=== PATIENT | female | born 1935 | race Caucasian/White ===

== ENCOUNTER 2016-05-11 20:13 | Inpatient (IN) | payer MEDICARE, BC ==
[2016-05-11] MEDS ORDERED: ONDANSETRON HCL INJ/PF 4 MG/2 ML SDV IV ONE (21:00)
[2016-05-11] MEDS ORDERED: NORMAL SALINE 1000 ML 1,000 ML IV ONE ×3 (21:00→23:53)
--- NOTE | 2016-05-11 21:01 | ER Document Report ---
ED General - General Chief Complaint: Abdominal Pain Stated Complaint: ALTERED MENTAL STATUS Notes: Patient is an 81-year-old female with past medical history of hypertension, hyperlipidemia, obesity, dementia, peripheral neuropathy, who presents by EMS with altered mental status and vomiting. History is limited as patient is disoriented, moaning and appears to be in pain. She is not able to provide meaningful history. Her grandson who lives with her is at the bedside and states that normally patient is alert and oriented, able to converse without difficulty, and complete most activities of daily living. He states for the last week patient has become progressively less functional, spending most of her day in bed. He notes that in the last 2 days become much more confused than normal. She began having vomiting today and it was noted to be bilious. No history of similar symptoms in the past. Nothing is noted to improve or worsen the patient's symptoms. She has not seen her primary care doctor since becoming ill. - Related Data Allergies/Adverse Reactions: No Known Allergies Allergy (Unverified 05/11/16 22:37) Home Medications: Current Home Medications Allopurinol [Allopurinol] 1 tab PO DAILY 05/12/16 [History] Donepezil HCl [Aricept 5 mg Tablet] 5 mg PO DAILY 05/12/16 [History] Furosemide [Furosemide] 1 tab PO QID 05/12/16 [History] Gabapentin [Gabapentin] 1 cap PO TID 05/12/16 [History] Levothyroxine Sodium [Levothyroxine Sodium] 1 tab PO QAM 05/12/16 [History] Lisinopril [Lisinopril] 1 tab PO DAILY 05/12/16 [History] Metolazone [Metolazone] 1 tab PO QAM 05/12/16 [History] Oxycodone HCl/Acetaminophen [Oxycodone-Acetaminophen 10-325] 1 each PO QID 05/12 [History] Potassium Chloride [Klor-Con M10] 2 tab PO BIDP PRN 05/12/16 [History] Trazodone HCl [Trazodone HCl] 1 tab PO QHS 05/12/16 [History] Warfarin Sodium [Jantoven] 1 tab PO DAILY 05/12/16 [History] Past Medical History - General Information source: Patient, Relative - Social History Smoking Status: Never Smoker Chew tobacco use (# tins/day): Yes Frequency of alcohol use: None Drug Abuse: None Lives with: Family Family History: Reviewed & Not Pertinent Review of Systems - Review of Systems Notes: Constitutional: Negative for fever. HENT: Negative for sore throat. Eyes: Negative for visual changes. Cardiovascular: Negative for chest pain. Respiratory: Negative for shortness of breath. Gastrointestinal: Positive for abdominal pain and vomiting Genitourinary: Negative for dysuria. Musculoskeletal: Negative for back pain. Skin: Negative for rash. Neurological: Negative for headaches, weakness or numbness. 10 point ROS negative except as marked above and in HPI. Physical Exam - Vital signs Vitals: Temp Pulse Resp BP Pulse Ox 98.0 F 67 22 H 106/94 H 98 05/11/16 20:18 05/11/16 20:18 05/11/16 20:18 05/11/16 20:18 05/11/16 20:18 Interpretation: Hypotensive, Tachycardic Notes: PHYSICAL EXAMINATION: GENERAL: Elderly, ill in appearance. Moaning and appears to be in pain. HEAD: Atraumatic, normocephalic. EYES: Pupils equal round and reactive to light, extraocular movements intact, sclera anicteric, conjunctiva are normal. ENT: nares patent, oropharynx clear without exudates. Dry mucous membranes. NECK: Normal range of motion, supple without lymphadenopathy LUNGS: Breath sounds clear to auscultation bilaterally and equal. No wheezes rales or rhonchi. HEART: Regular tachycardia without murmurs ABDOMEN: Soft, Diffuse tenderness, bowel sounds present. No rebound or guarding. , EXTREMITIES: Normal range of motion, no pitting or edema. No cyanosis. NEUROLOGICAL: No focal neurological deficits. Moves all extremities spontaneously and on command. PSYCH: Oriented to person, president but does not know year or month. SKIN: Warm, Dry, normal turgor, no rashes or lesions noted. Course - Re-evaluation Re-evalutation: 05/11/16 21:03 Patient presents altered, hypotensive, with bilious vomiting. Presentation is concerned for possible bowel obstruction given bilious vomiting and generalized abdominal pain. This would also send patient's hypotension. Will obtain broad laboratories, CT abdomen and pelvis, begin IV fluids, and reassess frequently as patient is critically ill, altered and unstable time. 05/11/16 22:01 Patient's laboratories demonstrate severe dehydration with near complete kidney failure at this time with a GFR of only 7. Suspect a component of underlying CKD but I have no old for comparison.Her BUN/creatinine ratio is greater than 20 and consistent with a likely prerenal in origin. IV fluids are being administered. The CT scan will be noncontrasted. 05/12/16 2330 I have reviewed the reports from CT and chest x-rays demonstrate a pericardial effusion but no other acute pathology. Once the bedside and performed a bedside echocardiogram. A pericardial effusion is apparent but there is no RV collapse and no evidence of tamponade. However, patient's mentation is now worsening and her blood pressures are dropping into the low 70s upper 60s. She continues protect her airway, awakens to loud voice. I initiated a transfer request to [facility] and at the same time was attempting to get hold of family who had left as they left prior to my ability to discuss the case with them. I got ahold of the patient's son Ruiz Hollis who is listed as the primary contact for this patient. We reviewed the patient's critical condition, her current diagnoses, and prognosis particularly given her age. I offered a transfer to [place], starting a central line, intubating the patient, initiating central vasopressors, and transferring with the intent of a therapeutic pericardiocentesis and possible pericardial window should her hypotension persist or she begins to develop tamponade pathology on ultrasound. I also alternatively offered care with comfort measures specifically avoiding transfer to another facility, a central line, intubation, chest compressions, initiation of dialysis, instead focusing on comfort measures and allowing for IV fluids, IV vasopressors, and IV antibiotics. After a long conversation, Ruiz elected for avoiding transfer with aggressive treatment options instead electing for comfort measures with reasonable resuscitation efforts. The patient is a DNR/DNI at this time. She will be started on peripheral IV norepinephrine, antibiotics, and additional fluids will be started. I will also monitor closely for signs of discomfort or air hunger and provide analgesia and anxiolysis as needed. 0403- patient has remained somnolent but does awaken to loud voice. On epinephrine her blood pressure has normalized. She continues to the paced rhythm. Maintaining sats in the mid 90s on 2 L by nasal cannula. I have discussed this case with Dr. Henning the hospitalist who has asked that I signed this patient out to my colleague Dr. Gonzalez as he is not in a place to accept this patient at this time. The details have been reviewed with Dr. Gonzalez who monitor the patient until the hospitalist service can accept. - Vital Signs Vital signs: Temp Pulse Resp BP Pulse Ox 98.0 F 67 23 H 85/48 L 100 05/11/16 20:18 05/11/16 20:18 05/12/16 03:11 05/12/16 03:11 05/12/16 03:11 - Laboratory Result Diagrams: 05/11/16 21:00 05/11/16 21:00 Laboratory results interpreted by me: 05/11/16 05/11/16 05/11/16 21:00 21:00 21:00 WBC 15.6 H Hgb 11.0 L Hct 33.3 L RDW 17.4 H Seg Neuts % (Manual) 79 H Band Neutrophils % 1 L Lymphocytes % (Manual) 11 L Abs Neuts (Manual) 12.5 H Sodium 122.2 L Potassium 5.6 H Chloride 76 L Carbon Dioxide 18 L Anion Gap 28 H BUN 196 H Creatinine 7.14 H Est GFR ( Amer) 7 L Est GFR (Non-Af Amer) 5 L Total Bilirubin 1.5 H AST 88 H Creatine Kinase 1062 H CK-MB (CK-2) 16.40 H Urine Protein Urine Ketones Urine Blood Ur Leukocyte Esterase 05/11/16 21:38 WBC Hgb Hct RDW Seg Neuts % (Manual) Band Neutrophils % Lymphocytes % (Manual) Abs Neuts (Manual) Sodium Potassium Chloride Carbon Dioxide Anion Gap BUN Creatinine Est GFR ( Amer) Est GFR (Non-Af Amer) Total Bilirubin AST Creatine Kinase CK-MB (CK-2) Urine Protein 100 H Urine Ketones TRACE H Urine Blood MODERATE H Ur Leukocyte Esterase MODERATE H - Diagnostic Test Radiology reviewed: Image reviewed, Reports reviewed Radiology results interpreted by me: 05/12/16 00:16 Chest x-ray: Cardiomegaly - EKG Interpretation by Me Additional EKG results interpreted by me: 05/12/16 00:22 Ventricular paced rhythm Critical Care Note - Critical Care Note Total time excluding time spent on procedures (mins): 80 Comments: Critical care time spent obtaining history from patient or surrogate, discussions with consultants, development of treatment plan with patient or surrogate, evaluation of patient's response to treatment, examination of patient , ordering and performing treatments and interventions, ordering and review of laboratory studies, re-evaluation of patient's condition, ordering and review of radiographic studies and review of old charts Discharge - Discharge Clinical Impression: Pericardial effusion, [id number] kidney injury, Hyponatremia, Elevated troponin I level Condition: Critical Disposition: ADMITTED INPATIENT Admitting Provider: Hospitalist
[2016-05-11 21:22] LABS: HEMATOCRIT 33.3 % (36.0-47.0); HGB HCT DIFFERENCE -0.3; MEAN CORPUSCULAR HEMOGLOBIN 28.5 pg (27.0-33.4); MEAN CORPUSCULAR VOLUME 87 fl (80-97); RED BLOOD COUNT 3.85 10^6/uL (3.72-5.28); RED CELL DISTRIBUTION WIDTH 17.4 % (11.5-14.0); WHITE BLOOD COUNT 15.6 10^3/uL (4.0-10.5)
[2016-05-11 21:28] LABS: ALANINE AMINOTRANSFERASE 46 U/L (9-52); ALBUMIN 3.9 g/dL (3.5-5.0); ALKALINE PHOSPHATASE 86 U/L (38-126); ASPARTATE AMINO TRANSFERASE 88 U/L (14-36); BILIRUBIN,TOTAL 1.5 mg/dL (0.2-1.3); CALCIUM 8.6 mg/dL (8.4-10.2); CREATINE KINASE 1062 U/L (30-135); GLUCOSE 92 mg/dL (75-110); TOTAL PROTEIN 7.5 g/dL (6.3-8.2)
[2016-05-11 21:34] LABS: CREATININE RESULT 7.14 mg/dL (0.52-1.25)
[2016-05-11 21:35] LABS: BLOOD UREA NITROGEN 196 mg/dL (7-20)
[2016-05-11 21:39] LABS: BAND NEUTROPHILS % (MANUAL) 1 % (3-5); BASOPHILS % (MANUAL) 0 % (0-2); EOSINOPHILS % (MANUAL) 1 % (0-6); LYMPHOCYTES % (MANUAL) 11 % (13-45); TOTAL CELLS COUNTED 100
[2016-05-11 21:40] LABS: CREATINE KINASE MB 16.4 ng/mL (<4.55)
[2016-05-11 21:41] LABS: ANISOCYTOSIS 1+; POIKILOCYTOSIS SLIGHT
[2016-05-11 21:42] LABS: OVALOCYTES SLIGHT
[2016-05-11 21:48] LABS: TROPONIN I 0.074 ng/mL
[2016-05-11 21:51] LABS: CARBON DIOXIDE 18 mmol/L (22-30); CHLORIDE 76 mmol/L (98-107); POTASSIUM 5.6 mmol/L (3.6-5.0); SODIUM 122.2 mmol/L (137-145)
[2016-05-11 21:52] LABS: ANION GAP 28 (5-19)
[2016-05-11 22:59] LABS: APPEARANCE,URINE TURBID; BILIRUBIN,URINE NEGATIVE (NEGATIVE); GLUCOSE, URINE NEGATIVE (NEGATIVE); KETONES,URINE TRACE mg/dL (NEGATIVE); LEUKOCYTE ESTERASE,URINE MODERATE (NEGATIVE); NITRITE,URINE NEGATIVE (NEGATIVE); PROTEIN,URINE 100 mg/dL (NEGATIVE); URINE SPECIFIC GRAVITY 1.011; UROBILINOGEN,URINE NEGATIVE mg/dL (<2.0)
--- NOTE | 2016-05-11 23:36 | EKG REPORT ---
SEVERITY:- ABNORMAL ECG - VENTRICULAR-PACED COMPLEXES NONSPECIFIC INTRAVENTRICULAR CONDUCTION DELAY : Confirmed by: Dina Alegre MD 11-May-2016 23:35:53
[2016-05-11] MEDS ORDERED: CEFTRIAXONE 1 GM/D5W RTU 50 ML IV ONE (23:43)
[2016-05-12] MEDS ORDERED: NOREPINEPHRINE BITARTRATE INJ/PF 4 MG/4 ML SDV IV ONE (00:25)
[2016-05-12] MEDS: DEXTROSE 5%-WATER 250 ML with NOREPINEPHRINE BITARTRATE 4 MG IV PRN ×6 (02:10→08:22)
[2016-05-12] MEDS ORDERED: NORMAL SALINE 1000 ML 1,000 ML IV ONE (03:13)
[2016-05-12] MEDS: FENTANYL CITRATE INJ/PF 100 MCG/2 ML AMPUL IV PRN ×2 (03:30→04:26)
[2016-05-12 04:37] LABS: CALCIUM 7.4 mg/dL (8.4-10.2); CARBON DIOXIDE 19 mmol/L (22-30); CHLORIDE 77 mmol/L (98-107); CREATININE RESULT 6.56 mg/dL (0.52-1.25); GLUCOSE 374 mg/dL (75-110); POTASSIUM 5.1 mmol/L (3.6-5.0)
[2016-05-12 05:01] LABS: ANION GAP 23 (5-19); BLOOD UREA NITROGEN 170 mg/dL (7-20)
[2016-05-12 05:03] LABS: SODIUM 118.6 mmol/L (137-145)
[2016-05-12] MEDS ORDERED: LORAZEPAM INJ 2 MG/1 ML VIAL IV ONE (05:30)
[2016-05-12] MEDS ORDERED: DEXTROSE 50%-WATER 25 GM/50 ML DISP.SYRIN IV PRN ×2 (08:58)
[2016-05-12] MEDS ORDERED: GLUCAGON,HUMAN RECOMB 1 MG INJ IM PRN (08:58)
[2016-05-12] MEDS ORDERED: DEXTROSE 40% GEL 15 GM TUBE PO PRN ×2 (08:58)
[2016-05-12] MEDS ORDERED: INSULIN LISPRO 100 UNIT/ML 3 ML VIAL SUBCUT PRN (08:58)
[2016-05-12] MEDS ORDERED: NORMAL SALINE 1000 ML 1,000 ML IV PRN ×3 (09:29→18:32)
[2016-05-12] MEDS ORDERED: DEXTROSE 5%-WATER 250 ML with NOREPINEPHRINE BITARTRATE 4 MG IV PRN ×2 (09:36)
[2016-05-12 09:47] LABS: CALCIUM 7.8 mg/dL (8.4-10.2); CARBON DIOXIDE 20 mmol/L (22-30); CHLORIDE 82 mmol/L (98-107); CREATININE RESULT 6.85 mg/dL (0.52-1.25); GLUCOSE 121 mg/dL (75-110); POTASSIUM 5.1 mmol/L (3.6-5.0)
[2016-05-12 09:55] LABS: BLOOD UREA NITROGEN 178 mg/dL (7-20)
[2016-05-12] MEDS ORDERED: HEPARIN SOD (PORCINE) 5,000 UNIT/ML 1 ML SYRINGE SUBCUT SCH (10:00)
[2016-05-12 10:02] LABS: SODIUM 126.6 mmol/L (137-145)
[2016-05-12 10:04] LABS: ANION GAP 25 (5-19)
[2016-05-12] MEDS ORDERED: HYDROMORPHONE HCL INJ/PF 2 MG/ML AMPULE IV PRN ×2 (10:07→18:32)
--- NOTE | 2016-05-12 10:33 | PDOC H&P ---
History of Present Illness Admission Date/PCP: 05/12/16 07:46 Patient complains of: Altered mental status History of Present Illness: KEVIN NIELSEN is a 81 year old female brought to the emergency room for evaluation of above complaint. Patient has been discussed with emergency room physician who evaluated the patient. Patient is quite ill, completely nonverbal, and although maintaining her airway well, responds only with a slight grimace to trapezius pinch. Otherwise, does not respond to name. She is thus able to provide no history whatsoever in terms of acute or chronic events, review of systems, personal habits, family history, etc. No friends or family are present. No old inpatient records available for review.. Please refer to documentation by ER re:her history and present illness, which has been reviewed. No further information available at this point in time. Levophed drip has been started by emergency room physician. . Laboratory results are listed in [facility] and are reviewed. X-ray summary results are listed below, with full report(s) reviewed. . EKG reviewed. No old EKG available for review. Social history/personal habits: Grandson lives with her. Retired. No use of alcohol tobacco or illicit drugs. No further information available this point in time. Allergies/adverse reactions NKDA. Home medications have been reconciled by nursing staff in [facility]. Home medications initially autopopulated into [facility] may not accurately reflect patient's true medications, dosages, and/or frequencies. Unfortunately, patient unable to confirm medications/dosages/frequencies. No medication bottles or lists available for review. REVIEW OF SYSTEMS: See history and present illness.No further information available this point in time. PHYSICAL EXAMINATION: 113.4 kg. Height is not recorded on the chart. Temperature 98.0. Blood pressure 87/56. Pulse 60 and regular. 98% saturation on 3 L oxygen per nasal cannula. Respirations are 24 and unlabored. Obese chronically ill-appearing elderly female, appearing approximately her stated age. Occasional slight moan. Does not respond to name or other conversation. Slight grimace to trapezius pinch. Maintaining her airway well. Skin is warm and dry. No grossly obvious evidence of rash in areas of skin examined. No subcutaneous nodules palpated. ENT: Hearing can't be adequately evaluated due to her current status. Eyes: No scleral icterus. Pupils pinpoint. [place] conjunctivae. Neck is nontender to gentle palpation. Midline trachea. No palpable thyroid nodule mass enlargement or tenderness. Lymphatic: No palpable cervical or clavicular nodes. Neck and lymphatic exams limited by patient body habitus. Psychiatric: Can't be adequately evaluated due to her current status. Lungs: Auscultation reveals clear and equal breath sounds bilaterally. No use of accessory respiratory muscles. Cardiovascular: Heart regular rate and rhythm, without gallop murmur or rub. No carotid or abdominal aortic bruits. Mild bilateral symmetric slightly pitting ankle and pedal edema Faintly palpable dorsalis pedis pulses. Abdomen: soft, somewhat obese, somewhat distended nontender with positive bowel sounds. Unable to adequately evaluate abdomen for masses or organomegaly due to distention and body habitus. Extremities: Hands and Feet are warm and dry. No calf tenderness to compression. No grossly obvious visual evidence of calf swelling. Gentle manipulation of lower extremities fails to reveal any obvious evidence of injury or instability to knees hips or ankles. Neurologic: [Patellar reflexes absent. Absent Babinski. Light touch can't be determined due to her current status. Does not follow requests for handgrip or movement of her toes or feet. Past Medical History Cardiac Medical History: Reports: Hypertension Endocrine Medical History: Reports: Diabetes Mellitus Type 2 - previous dx Social History Information Source: Emergency Med Personnel, [facility] Records Lives with: Family Smoking Status: Never Smoker - Advance Directive Resuscitation Status: Do Not Resuscitate Surrogate healthcare decision maker:: reportedly son Family History Family History: Reviewed & Not Pertinent Parental Family History Reviewed: No - No further information available except as noted above Children Family History Reviewed: No Sibling(s) Family History Reviewed.: No Medication/Allergy Home Medications: Allopurinol [Allopurinol] 1 tab PO DAILY 05/12/16 Donepezil HCl [Aricept 5 mg Tablet] 5 mg PO DAILY 05/12/16 Furosemide [Furosemide] 1 tab PO QID 05/12/16 Gabapentin [Gabapentin] 1 cap PO TID 05/12/16 Levothyroxine Sodium [Levothyroxine Sodium] 1 tab PO QAM 05/12/16 Lisinopril [Lisinopril] 1 tab PO DAILY 05/12/16 Metolazone [Metolazone] 1 tab PO QAM 05/12/16 Oxycodone HCl/Acetaminophen [Oxycodone-Acetaminophen 10-325] 1 each PO QID 05/12 Potassium Chloride [Klor-Con M10] 2 tab PO BIDP PRN 05/12/16 Trazodone HCl [Trazodone HCl] 1 tab PO QHS 05/12/16 Warfarin Sodium [Jantoven] 1 tab PO DAILY 05/12/16 Allergies/Adverse Reactions: No Known Allergies Allergy (Unverified 05/11/16 22:37) Physical Exam Vital Signs: Temp Pulse Resp BP Pulse Ox 97.4 F 67 18 111/91 H 97 05/12/16 07:43 05/11/16 20:18 05/12/16 08:41 05/12/16 08:41 05/12/16 08:41 Results Impressions: Abdomen/Pelvis CT 05/11/16 20:58 IMPRESSION: NO ACUTE INFLAMMATORY CHANGES SEEN WITHIN THE ABDOMEN PELVIS ON THIS NONCONTRAST CT. DIVERTICULOSIS WITHOUT DIVERTICULITIS. CHOLELITHIASIS WITHOUT CHOLECYSTITIS. INCIDENTAL NOTE MADE OF PERICARDIAL EFFUSION. CONSIDER CORRELATION WITH ECHOCARDIOGRAM. Chest X-Ray 05/11/16 20:58 IMPRESSION: ENLARGED CARDIAC S[place]ETTE COMPATIBLE WITH CARDIOMEGALY AND PERICARDIAL EFFUSION SEEN ON PRIOR CT ABDOMEN. CONSIDER CARDIOLOGY CONSULTATION AND CORRELATION WITH ECHOCARDIOGRAM. Assessment & Plan - Diagnosis (1) Acidosis Is this a current diagnosis for this admission?: Yes (2) Acute encephalopathy Is this a current diagnosis for this admission?: Yes (3) Anemia Qualifiers: Anemia type: unspecified type Qualified Code(s): D64.9 - Anemia, unspecified Is this a current diagnosis for this admission?: YesPlan: No old labs available for comparison.No need for transfusion at present time. (4) DNR (do not resuscitate) Is this a current diagnosis for this admission?: Yes (5) Hyperkalemia Is this a current diagnosis for this admission?: YesPlan: Improving with fluids so far. Follow-up chemistry. (6) Hyponatremia Is this a current diagnosis for this admission?: YesPlan: Follow-up chemistry. (7) Pericardial effusion Is this a current diagnosis for this admission?: YesPlan: Healthcare power of collections attorney does not desire any further treatment of same. (8) Renal failure Is this a current diagnosis for this admission?: YesPlan: Healthcare power of collections attorney does not desire any further treatment of same other than IV fluids. Follow-up chemistry. (9) Dementia Qualifiers: Dementia type: vascular dementia Dementia behavioral disturbance: without behavioral disturbance Qualified Code(s): F01.50 - Vascular dementia without behavioral disturbance Is this a current diagnosis for this admission?: Yes (10) HTN (hypertension) Qualifiers: Hypertension type: essential hypertension Qualified Code(s): I10 - Essential (primary) hypertension Is this a current diagnosis for this admission?: YesPlan: With patient hypotensive, on Levophed drip, we will obviously hold home medications. (11) Hypothyroid Qualifiers: Hypothyroidism type: unspecified Qualified Code(s): E03.9 - Hypothyroidism, unspecified Is this a current diagnosis for this admission?: Yes (12) UTI (urinary tract infection) Qualifiers: Urinary tract infection type: acute cystitis Hematuria presence: with hematuria Qualified Code(s): N30.01 - Acute cystitis with hematuria Is this a current diagnosis for this admission?: YesPlan: Rocephin. Knee high SCDs for DVT prophylaxis, along with subcutaneous heparin. Time spent in evaluation and management of patient: 48 minutes. - Inpatient Certification Based on my medical assessment, after consideration of the patient's comorbidities, presenting symptoms, or acuity I expect that the services needed warrant INPATIENT care.: Yes I certify that my determination is in accordance with my understanding of Medicare's requirements for reasonable and necessary INPATIENT services [42 CFR 412.3e].: Yes Medical Necessity: Need For IV Fluids, Need For Continuous Telemetry Monitoring , Need for IV Antibiotics, Risk of Complication if Not Cared For in Hospital Post Hospital Care: D/C or Transfer Summary
[2016-05-12] MEDS ORDERED: PHARMACY COMMUNICATION ORDER MC NR (10:45)
--- NOTE | 2016-05-12 15:45 | PDOC PROGRESS REPORT ---
Subjective Progress Note for:: 05/12/16 Subjective:: The patient was seen on rounds. The patient is completely unresponsive. She is extremities are cool. Patient does feel a cold and wet profile. The patient has evidence of cardiogenic versus septic shock. Urine output is minimal. The patient is maximized on norepinephrine at this time. I discussed the case with the patient's son who is also her surrogate decision maker. The son stated that he would like his mother to be Comfortable but does not wish for pressors to stop at this time until he discusses with other family and other family have opportunity to come to the hospital. The son adamantly refuses any heroic measures stating that the patient has had kidney and heart problems for a long time. The patient remains hypotensive, hyponatremic, and unresponsive. Physical Exam Vital Signs: Temp Pulse Resp BP Pulse Ox 97.4 F 67 14 78/50 L 96 05/12/16 07:43 05/11/16 20:18 05/12/16 15:11 05/12/16 15:11 05/12/16 15:11 Intake & Output 05/10/16 05/11/16 05/12/16 23:59 23:59 23:59 Output Total 1175 Balance -1175 General appearance: PRESENT: disheveled Exam: Frail, chronically ill-appearing Head exam: PRESENT: atraumatic, normocephalic Eye exam: PRESENT: conjunctiva pink, EOMI, other - Bilaterally sluggish but responsive. ABSENT: scleral icterus Ear exam: PRESENT: normal external ear exam Mouth exam: PRESENT: moist, tongue midline Neck exam: ABSENT: carotid bruit, JVD, lymphadenopathy, thyromegaly Respiratory exam: PRESENT: crackles - Diffuse throughout, rales. ABSENT: rhonchi, wheezes Cardiovascular exam: PRESENT: RRR, rubs - Faint. ABSENT: diastolic murmur, systolic murmur Pulses: PRESENT: normal dorsalis pedis pul Vascular exam: PRESENT: pallor GI/Abdominal exam: PRESENT: normal bowel sounds, soft. ABSENT: distended, guarding, mass, organolmegaly, rebound, tenderness Rectal exam: PRESENT: deferred Extremities exam: PRESENT: pedal edema, +2 edema Neurological exam: PRESENT: other - Unresponsive even to painful stimuli Focused psych exam: PRESENT: other Skin exam: PRESENT: dry, intact, mottled, pallor. ABSENT: cyanosis, warm Results Laboratory Results: Labs- Last Values WBC 15.6 10^3/uL (4.0-10.5) H 05/11/16 21:00 RBC 3.85 10^6/uL (3.72-5.28) 05/11/16 21:00 Hgb 11.0 g/dL (12.0-15.5) L 05/11/16 21:00 Hct 33.3 % (36.0-47.0) L 05/11/16 21:00 MCV 87 fl (80-97) 05/11/16 21:00 MCH 28.5 pg (27.0-33.4) 05/11/16 21:00 MCHC 33.0 g/dL (32.0-36.0) 05/11/16 21:00 RDW 17.4 % (11.5-14.0) H 05/11/16 21:00 Plt Count 367 10^3/uL (150-450) 05/11/16 21:00 Total Counted 100 05/11/16 21:00 Seg Neutrophils % Not Reportable 05/11/16 21:00 Seg Neuts % (Manual) 79 % (42-78) H 05/11/16 21:00 Band Neutrophils % 1 % (3-5) L 05/11/16 21:00 Lymphocytes % Not Reportable 05/11/16 21:00 Lymphocytes % (Manual) 11 % (13-45) L 05/11/16 21:00 Monocytes % Not Reportable 05/11/16 21:00 Monocytes % (Manual) 8 % (3-13) 05/11/16 21:00 Eosinophils % Not Reportable 05/11/16 21:00 Eosinophils % (Manual) 1 % (0-6) 05/11/16 21:00 Basophils % Not Reportable 05/11/16 21:00 Basophils % (Manual) 0 % (0-2) 05/11/16 21:00 Absolute Neutrophils Not Reportable 05/11/16 21:00 Abs Neuts (Manual) 12.5 10^3/uL (1.7-8.2) H 05/11/16 21:00 Absolute Lymphocytes Not Reportable 05/11/16 21:00 Abs Lymphs (Manual) 1.7 10^3/uL (0.5-4.7) 05/11/16 21:00 Absolute Monocytes Not Reportable 05/11/16 21:00 Abs Monocytes (Manual) 1.2 10^3/uL (0.1-1.4) 05/11/16 21:00 Absolute Eosinophils Not Reportable 05/11/16 21:00 Absolute Eos (Manual) 0.2 10^3/uL (0.0-0.6) 05/11/16 21:00 Absolute Basophils Not Reportable 05/11/16 21:00 Abs Basophils (Manual) 0.0 10^3/uL (0.0-0.2) 05/11/16 21:00 Platelet Comment ADEQUATE 05/11/16 21:00 Poikilocytosis SLIGHT 05/11/16 21:00 Anisocytosis 1+ 05/11/16 21:00 Ovalocytes SLIGHT 05/11/16 21:00 Sodium 126.6 mmol/L (137-145) L 05/12/16 09:20 Potassium 5.1 mmol/L (3.6-5.0) H 05/12/16 09:20 Chloride 82 mmol/L (98-107) L 05/12/16 09:20 Carbon Dioxide 20 mmol/L (22-30) L 05/12/16 09:20 Anion Gap 25 (5-19) H 05/12/16 09:20 BUN 178 mg/dL (7-20) H 05/12/16 09:20 Creatinine 6.85 mg/dL (0.52-1.25) H 05/12/16 09:20 Est GFR ( Amer) 7 (>60) L 05/12/16 09:20 Est GFR (Non-Af Amer) 6 (>60) L 05/12/16 09:20 Glucose 121 mg/dL (75-110) H 05/12/16 09:20 POC Glucose 118 mg/dL (70-110) H 05/12/16 14:58 Calcium 7.8 mg/dL (8.4-10.2) L 05/12/16 09:20 Total Bilirubin 1.5 mg/dL (0.2-1.3) H 05/11/16 21:00 Direct Bilirubin 0.0 mg/dL (0.0-0.3) 05/11/16 21:00 AST 88 U/L (14-36) H 05/11/16 21:00 ALT 46 U/L (9-52) 05/11/16 21:00 Alkaline Phosphatase 86 U/L (38-126) 05/11/16 21:00 Creatine Kinase 1062 U/L (30-135) H 05/11/16 21:00 CK-MB (CK-2) 16.40 ng/mL (<4.55) H 05/11/16 21:00 Troponin I 0.074 ng/mL 05/11/16 21:00 Total Protein 7.5 g/dL (6.3-8.2) 05/11/16 21:00 Albumin 3.9 g/dL (3.5-5.0) 05/11/16 21:00 Urine Color SHANITA 05/11/16 21:38 Urine Appearance TURBID 05/11/16 21:38 Urine pH 7.0 (5.0-9.0) 05/11/16 21:38 Ur Specific Brooks 1.011 05/11/16 21:38 Urine Protein 100 mg/dL (NEGATIVE) H 05/11/16 21:38 Urine Glucose (UA) NEGATIVE mg/dL (NEGATIVE) 05/11/16 21:38 Urine Ketones TRACE mg/dL (NEGATIVE) H 05/11/16 21:38 Urine Blood MODERATE (NEGATIVE) H 05/11/16 21:38 Urine Nitrite NEGATIVE (NEGATIVE) 05/11/16 21:38 Urine Bilirubin NEGATIVE (NEGATIVE) 05/11/16 21:38 Urine Urobilinogen NEGATIVE mg/dL (<2.0) 05/11/16 21:38 Ur Leukocyte Esterase MODERATE (NEGATIVE) H 05/11/16 21:38 Urine WBC (Auto) 125 /HPF 05/11/16 21:38 Urine RBC (Auto) 49 /HPF 05/11/16 21:38 Urine WBC Clumps MANY /HPF 05/11/16 21:38 Squamous Epi Cells Auto 6 /HPF 05/11/16 21:38 U Non-Squamous Epis Auto 3 /HPF 05/11/16 21:38 Urine Mucus (Auto) FEW /LPF 05/11/16 21:38 Urine Ascorbic Acid NEGATIVE (NEGATIVE) 05/11/16 21:38 Stool Occult Blood NEGATIVE (NEGATIVE) 05/11/16 23:16 Influenza A (Rapid) NEGATIVE (NEGATIVE) 05/11/16 23:16 Influenza B (Rapid) NEGATIVE (NEGATIVE) 05/11/16 23:16 Impressions: Abdomen/Pelvis CT 05/11/16 20:58 IMPRESSION: NO ACUTE INFLAMMATORY CHANGES SEEN WITHIN THE ABDOMEN PELVIS ON THIS NONCONTRAST CT. DIVERTICULOSIS WITHOUT DIVERTICULITIS. CHOLELITHIASIS WITHOUT CHOLECYSTITIS. INCIDENTAL NOTE MADE OF PERICARDIAL EFFUSION. CONSIDER CORRELATION WITH ECHOCARDIOGRAM. Chest X-Ray 05/11/16 20:58 IMPRESSION: ENLARGED CARDIAC SILHOUETTE COMPATIBLE WITH CARDIOMEGALY AND PERICARDIAL EFFUSION SEEN ON PRIOR CT ABDOMEN. CONSIDER CARDIOLOGY CONSULTATION AND CORRELATION WITH ECHOCARDIOGRAM. Assessment & Plan - Diagnosis (1) Pulmonary edema Qualifiers: Chronicity: acute Qualified Code(s): J81.0 - Acute pulmonary edema Is this a current diagnosis for this admission?: YesPlan: Most likely the patient has underlying heart failure given her home medication list however the family is uncertain of the patient's past diagnosis and no other records are available at this time. The patient has no current evidence of tamponade on therefore proceed to diurese given the patient's chest x-ray findings as well as lung sounds. (2) Shock Is this a current diagnosis for this admission?: YesPlan: Cardiogenic versus septic. Patient does feel a cold and wet profile however her analysis is suggestive of UTI with significant white count. Will continue antibiotic coverage will not add any further pressors. Awaiting culture. (3) Sfxva-rr-nogoyxy kidney injury Is this a current diagnosis for this admission?: YesPlan: Uncertain of the patient's baseline however according to the son the patient had kidney problems for years. The patient has been aggressively hydrated overnight with no significant improvement in kidney function. Could be due to congestion from volume overload. Patient family have refused hemodialysis knowing this will be fatalistic. (4) UTI (urinary tract infection) Qualifiers: Urinary tract infection type: acute cystitis Hematuria presence: with hematuria Qualified Code(s): N30.01 - Acute cystitis with hematuria Is this a current diagnosis for this admission?: YesPlan: Continue antibiotic coverage awaiting culture. (5) Acute encephalopathy Is this a current diagnosis for this admission?: Yes (6) Hyperkalemia Is this a current diagnosis for this admission?: YesPlan: Mild will follow (7) Hyponatremia Is this a current diagnosis for this admission?: YesPlan: Possibly due to volume overload. Will monitor (8) Pericardial effusion Is this a current diagnosis for this admission?: Yes (9) Dementia Qualifiers: Dementia type: vascular dementia Dementia behavioral disturbance: without behavioral disturbance Qualified Code(s): F01.50 - Vascular dementia without behavioral disturbance Is this a current diagnosis for this admission?: Yes (10) HTN (hypertension) Qualifiers: Hypertension type: essential hypertension Qualified Code(s): I10 - Essential (primary) hypertension Is this a current diagnosis for this admission?: YesPlan: The patient is hypotensive (11) Hypothyroid Qualifiers: Hypothyroidism type: unspecified Qualified Code(s): E03.9 - Hypothyroidism, unspecified Is this a current diagnosis for this admission?: YesPlan: Will resume levothyroxine the patient is able to take by mouth. (12) Anemia of chronic disease Is this a current diagnosis for this admission?: YesPlan: Stable (13) DNR (do not resuscitate) Is this a current diagnosis for this admission?: YesPlan: Conservative management only. Son wants his mother kept comfortable however wants to continue pressors until all family is been made aware. - Time Critical Time spent with patient: 35 or more minutes Medications reviewed and adjusted accordingly: Yes Disposition: The patient's prognosis is grave. I discussed the case with the patient's son who is aware of the patient's current condition. Son/decision maker is to discuss the patient's prognosis with family this evening. Likely to move forward with comfort measures at that time.
[2016-05-12] MEDS ORDERED: FUROSEMIDE INJ/PF 40 MG/4 ML SDV IV ONE (17:00)
--- NOTE | 2016-05-12 18:29 | Progress Note ---
Provider Note Provider Note: I was called to bedside by nursing staff after Ms. Kam had already left for the evening to discuss the patient's current situation and treatment options. All of the patient's children have arrived and she is from her so all decision-makers are present and accounted for. I reviewed her chart since admission including the admitting H&P, progress notes, CT scans, chest x- rays, lab work, EKG. The family tells me over the course of the last week the patient began preparing for her , she had picked out the dress she wanted worn at her , had written a letter to her alerting him to the fact that she would soon be joining him, had written down the list of the music she wanted played and how she wanted her family to survive her. They tell me she "tried" hemodialysis once and decided she would never want to do that again. She had expressed to her family on numerous occasions that she was tired and ready to take the next step and would not want them to pursue aggressive or invasive interventions to keep her alive "when her time came". It would seem that time is at hand. She is currently maxed out on vasopressors , IV fluids have been given but seem to be worsening her pulmonary edema, respiratory status and pericardial effusion without improving her renal function or electrolyte abnormalities. She is obtunded and unresponsive to noxious verbal or tactile stimuli and it seems apparent to me that she will not recover from this event even with aggressive treatment. At this point, even if she wanted hemodialysis she would not survive it due to the degree of her hypotension, she is simply too unstable. I spent the last 30 minutes in the room with the family reviewing her case and answering all of their questions to the best of my ability. It was a unanimous decision from all members present that she would not want any of the interventions we are currently providing, so the decision was made to transition her to comfort care measures only. Since she does not wear oxygen at home that will be discontinued, IV fluids will be changed to KVO to facilitate administration of medications as needed to keep her comfortable and vasopressors will be discontinued. She'll be taken off of cardiac monitoring so that the family can more readily visit with her at the bedside. Nursing staff were present for this discussion and expressed no concerns about this change in her care. There were no objections voiced by any family members present. Case will be discussed with Dr. Henning when he arrives to cover the service this evening. I doubt she will linger more than an hour or two given her current state and what I see clinically. Orders for appropriate comfort medications were provided in the chart.
[2016-05-12 21:25] VITALS: BP 56/37
[2016-05-12] MEDS ORDERED: CEFTRIAXONE 1 GM/D5W RTU 1 GM/50 ML RTUPB IV SCH (22:00)
--- NOTE | 2016-05-13 14:17 | Death Summary ---
Summary Date : 05/12/16 Time of :: 21:58 Autopsy: No Resuscitation Status: Comfort Measures Only - Final Diagnosis (1) Pulmonary edema Is this a current diagnosis for this admission?: Yes (2) Shock Is this a current diagnosis for this admission?: Yes (3) [id number]-[id number] kidney injury Is this a current diagnosis for this admission?: Yes (4) UTI (urinary tract infection) Is this a current diagnosis for this admission?: Yes (5) Acute encephalopathy Is this a current diagnosis for this admission?: Yes (6) Hyperkalemia Is this a current diagnosis for this admission?: Yes (7) Hyponatremia Is this a current diagnosis for this admission?: Yes (8) Pericardial effusion Is this a current diagnosis for this admission?: Yes (9) Dementia Is this a current diagnosis for this admission?: Yes (10) HTN (hypertension) Is this a current diagnosis for this admission?: Yes (11) Hypothyroid Is this a current diagnosis for this admission?: Yes (12) Anemia of chronic disease Is this a current diagnosis for this admission?: Yes (13) DNR (do not resuscitate) Is this a current diagnosis for this admission?: Yes Hospital Course:: KEVIN NIELSEN is a 81 year old female brought to the emergency room for evaluation of altered mental status. Patient was quite ill, completely nonverbal, and although maintaining her airway well, responds only with a slight grimace to trapezius pinch. Otherwise, did not respond to name. Patient was unable to provide no history whatsoever in terms of acute or chronic events, review of systems, personal habits, family history, etc. According to the patient's grandson who lives with her that normally patient is alert and oriented, able to converse without difficulty, and complete most activities of daily living. He states for the last week patient has become progressively less functional, spending most of her day in bed. He notes that in the last 2 days become much more confused than normal. She began having vomiting the day of presentation and it was noted to be bilious. No history of similar symptoms in the past. Nothing is noted to improve or worsen the patient 's symptoms. She has not seen her primary care doctor since becoming ill. Patient's laboratories demonstrated severe dehydration with near complete kidney failure at this time with a GFR of only 7. According to the patient's son the patient has long had problems with her kidneys. IV fluids are being administered. Emergency room provider performed a bedside echocardiogram. A pericardial effusion is apparent but there is no RV collapse and no evidence of tamponade. However, patient's mentation was worsening and her blood pressures are dropping into the low 70s upper 60s. She continued to protect her airway, awakens to loud voice. The patient's son Ruiz Nielsen who is listed as the primary contact for this patient. After a long conversation, Ruiz elected for avoiding transfer with aggressive treatment options instead electing for comfort measures with reasonable resuscitation efforts. The patient is a DNR/ DNI at this time. She will be started on peripheral IV norepinephrine, antibiotics, and additional fluids will be started. I will also monitor closely for signs of discomfort or air hunger and provide analgesia and anxiolysis as needed. The patient's condition continued to deteriorate through the day. The patient' s time of was noted to be 05/12/2016 at 2158.
== END 2016-05-12 21:58 | disposition left against medical advice (07) | DRG 871 ==
LOC: ER 20:13 → EH 05-12 07:46 → UNDOADMIN 05-12 07:46 → EH 05-12 09:29 → UNDODISIN 05-13 00:14
DX: A41.9 Sepsis, unspecified organism (principal); G93.41 Metabolic encephalopathy; R65.21 Severe sepsis with septic shock; J81.0 Acute pulmonary edema; N17.9 Acute kidney failure, unspecified; N30.01 Acute cystitis with hematuria; I31.3 Pericardial effusion (noninflammatory); E87.1 Hypo-osmolality and hyponatremia; E87.2 Acidosis; R57.0 Cardiogenic shock; E87.5 Hyperkalemia; Z51.5 Encounter for palliative care; I12.9 Hypertensive chronic kidney disease with stage 1 through stage 4 chronic kidney disease, or unspecified chronic kidney disease; E11.22 Type 2 diabetes mellitus with diabetic chronic kidney disease; N18.9 Chronic kidney disease, unspecified; D63.8 Anemia in other chronic diseases classified elsewhere; E86.0 Dehydration; Z66 Do not resuscitate; E03.9 Hypothyroidism, unspecified; F01.50 Vascular dementia, unspecified severity, without behavioral disturbance, psychotic disturbance, mood disturbance, and anxiety; E11.42 Type 2 diabetes mellitus with diabetic polyneuropathy; Z79.899 Other long term (current) drug therapy
CPT/HCPCS: 36415; 71010; 74176; 80048; 80053; 81001; 82272; 82550; 82553; 82962; 84484; 85025; 87040; 87086; 87088; 87186; 87804; 93005; 93010; 96361; 96365; 96375; 96376; 99291; 99292; J0696; J1170; J1644; J2060; J2405; J3010; J3490; J7030; J7060